=== PATIENT | female | born 1985 | race African-American/Black ===

== ENCOUNTER 2018-03-15 12:53 | Emergency (ER) | payer MEDICAID, SELFPAY ==
--- NOTE | 2018-03-15 13:48 | RAD ---
RIGHT FOOT 3 VIEWS: History Pain. Injury to the pinky toe. COMPARISON: None. FINDINGS: There is lateral subluxation of the distal phalanx of the small toe. Mild soft tissue swelling aroun d the small toe. No acute fracture is appreciated. IMPRESSION: Lateral subluxation of the distal phalanx of the small toe may reflect an acute ligamentous injury. POS: [facility]
[2018-03-15] MEDS ORDERED: Lidocaine 1% (PF) 30 ML VIAL ONE (14:07)
[2018-03-15] MEDS ORDERED: Ibuprofen 200 MG TAB ONE ×2 (14:27)
== END 2018-03-15 15:12 | disposition home or self-care (01) ==
LOC: ERS 12:53
DX: S93.114A Dislocation of interphalangeal joint of right lesser toe(s), initial encounter (principal); X58.XXXA Exposure to other specified factors, initial encounter
CPT/HCPCS: 64450; J2001

== ENCOUNTER 2020-08-17 22:48 | Emergency (ER) | payer SELFPAY ==
[2020-08-17] MEDS ORDERED: HYDROcodone/Acetaminophen 5/325 mg Tablet ONE (23:39)
[2020-08-17] MEDS ORDERED: Morphine 4 MG/ML VIAL ONE (23:39)
== END 2020-08-17 23:55 | disposition home or self-care (01) ==
LOC: ERS 22:48
DX: S83.91XA Sprain of unspecified site of right knee, initial encounter (principal); I10 Essential (primary) hypertension; F17.210 Nicotine dependence, cigarettes, uncomplicated; Y04.0XXA Assault by unarmed brawl or fight, initial encounter
CPT/HCPCS: 96372; J2270

== ENCOUNTER 2020-09-06 02:07 | Emergency (ER) | payer SELFPAY ==
[2020-09-06 02:52] LABS: #Basophils 0.1 thou/uL (0.0-0.2); #Eosinphils 0.1 thou/uL (0.0-0.7); #Lymphocytes 2.5 thou/uL (1.20-3.40); #Monocytes 0.5 thou/uL (0.11-0.59); %Basophils 0.8 % (0.0-1.0); %Eosinophils 1.6 % (0.0-10.0); %Lymphocytes 34.7 % (21.0-51.0); %Monocytes 6.6 % (0.0-10.0); %Neutrophils 56.4 % (42.0-75.0); Hemoglobin 11.7 g/dL (12.0-16.0); Mean Corpuscular HGB CONC 33.3 g/dL (32.0-36.0); Mean Corpuscular Hemoglobin 27.9 pg (27.0-31.0); Mean Platelet Volume 9.9 fL (7.4-10.4); Platelet Count 214 thou/uL (130-400); RBC Distribution Width 14.2 % (11.5-14.5); White Blood Cell (WBC) Count 7.1 thou/uL (4.8-10.8)
[2020-09-06 03:10] LABS: ALT (SGPT) 8 U/L (8-55); AST (SGOT) 14 U/L (5-34); Albumin 3.7 g/dL (3.5-5.0); Alkaline Phosphatase 61 U/L (40-110); Anion Gap 10 mmol/L (10-20); BUN (Urea Nitrogen) 12 mg/dL (7.0-18.7); Bilirubin, Total 0.2 mg/dL (0.2-1.2); Calc. Creatinine Clearance 0 mL/min (70-130); Calcium 9.7 mg/dL (7.8-10.44); Carbon Dioxide 26 mmol/L (22-29); Chloride 105 mmol/L (98-107); Glucose 91 mg/dL (70-105); Potassium 3.7 mmol/L (3.5-5.1); Protein, Total 7.7 g/dL (6.0-8.3); Sodium 137 mmol/L (136-145)
[2020-09-06 03:49] LABS: Acetaminophen Less than 6.0 mcg/mL (10.0-30.0); Alcohol Less than 10 mg/dL (Less than 10); Salicylate Less than 8.0 mg/dL (15.0-30.0)
[2020-09-06 03:56] LABS: Amphetamine Not Detected (NotDetected); Barbiturates Screen Not Detected (NotDetected); Benzodiazepine Screen Not Detected (NotDetected); Cocaine Metabolite Screen Not Detected (NotDetected); Medtox Control Line Valid? VALID (VALID); Methadone Not Detected (NotDetected); Methamphetamine Not Detected (NotDetected); Opiate Screen Not Detected (NotDetected); Oxycodone Screen Not Detected (NotDetected); Phencyclidine (PCP) Not Detected (NotDetected); THC/Cannabinoid Screen Detected (NotDetected); Tricyclic Screen Not Detected (NotDetected)
[2020-09-06 04:10] LABS: Medtox Reader # READER 4
[2020-09-06] MEDS ORDERED: hydrALAZINE 25 MG TAB ONE (04:40)
== END 2020-09-06 05:38 | disposition home or self-care (01) ==
LOC: ERS 02:07
DX: I10 Essential (primary) hypertension (principal); F17.210 Nicotine dependence, cigarettes, uncomplicated
CPT/HCPCS: 70450; 80053; 80306; 80307; 85025; 93005

== ENCOUNTER 2020-10-27 10:57 | Emergency (ER) | payer SELFPAY | END 2020-10-27 16:18 | disposition left against medical advice (07) | LOC: ERS 10:57 | DX: Z53.21 Procedure and treatment not carried out due to patient leaving prior to being seen by health care provider (principal) ==